=== PATIENT | male | born 1980 | race Caucasian/White ===

== ENCOUNTER 2021-10-26 14:00 | Emergency (ER) | payer OTHER, SELFPAY ==
[2021-10-26 14:15] VITALS: BP 146/92; PULSE 74; RESP 18; TEMP 36.9; O2SAT 97; BMI 27.0
--- NOTE | 2021-10-26 15:03 | ED_ITS ---
HPI - Wound/Laceration General Time Seen by Provider: 15:03 Date Seen: 10/26/21 Chief Complaint: Laceration/Wound Stated Complaint: Left pointer finger cut in power saw Time Seen by Provider: 10/26/21 14:53 Source: patient and family Mode of arrival: ambulatory Limitations: no limitations History of Present Illness HPI narrative: Dario is a very pleasant 41-year-old male with up-to-date immunization within the last 5 years tetanus who comes to the emergency room for evaluation regarding an injury to his left index finger. He states he was working with salt and the fall was not quite stopped when he reached in. This caused a laceration to the volar surface of his distal finger. He notes a lot of blood at initially. He states there is no pain at this time. Onset (ago): minute(s) Related Data Home Medications Medication Instructions Recorded Confirmed No Known Home Medications 10/26/21 10/26/21 Allergies Allergy/AdvReac Type Severity Reaction Status Date / Time No Known Drug Allergies Allergy Verified 10/26/21 14:15 Review of Systems Narrative: Patient is left handed. No pain at this time. No problems with poorly healing wounds in the past. [facility] Social History Smoking Status: Never smoker Do you use any of these nicotine containing products: None How often do you have a drink containing alcohol: 2-3 times a week How many standard drinks containing alcohol do you have on a typical day: 3 or 4 How often do you have six or more drinks on one occasion: Weekly AUDIT-C Alcohol total score: 7 Non-prescribed substance use: denies use and marijuana (any form) service: No Exam Narrative: Exam Narrative: Patient is alert and oriented. Examination of his left index finger shows a 1.8 cm area linear skin avulsion extending from just proximal to the D IP flexor to the lateral distal phalanx. This has avulsed the epidermis but dermis is intact. Patient has full flexion at the PIP and the IP. Sensation is intact. Const: Vital Signs, click to edit/add: Vital Signs - 24 hr 10/26/21 14:15 Temperature 98.4 F Pulse Rate [Pulse Oximeter] 74 Respiratory Rate 18 Blood Pressure [Ri ght Upper Arm] 146/92 H Pulse Oximetry 97 Course Vital Signs Vital signs: Initial Vital Signs Temperature 98.4 F 10/26/21 14:15 Temperature Source Temporal Artery Scan 10/26/21 14:15 Pulse Rate 74 10/26/21 14:15 Pulse Rhythm 10/26/21 14:15 Respiratory Rate 18 10/26/21 14:15 Blood Pressure 146/92 H 10/26/21 14:15 Blood Pressure Mean 110 10/26/21 14:15 Pulse Oximetry 97 10/26/21 14:15 Oxygen Delivery Method 10/26/21 14:15 Vital Signs Temperature 98.4 F 10/26/21 14:15 Pulse Rate 74 10/26/21 14:15 Respiratory Rate 18 10/26/21 14:15 Blood Pressure 146/92 H 10/26/21 14:15 Pulse Oximetry 97 10/26/21 14:15 Temperature 98.4 F 10/26/21 14:15 Pulse Rate 74 10/26/21 14:15 Respiratory Rate 18 10/26/21 14:15 Blood Pressure 146/92 H 10/26/21 14:15 Pulse Oximetry 97 10/26/21 14:15 MDM - Wound/Laceration MDM Narrative Medical decision making narrative: 1. Skin avulsion-unfortunately there is no way to bring the skin edges together but I will have patient use bacitracin for the next 2 days along with a Band- Aid. After that he may use just the Band-Aid and try to keep this open to air as it heals. There is a small amount of avulsed skin that he may allow to fall off naturally. Of course should he have worsening symptoms such as signs of i nfection I would ask him to return to the emergency room for evaluation. 2. Disposition-home with his . Currently having him wash his hands with soap and water. Will then dressed the wound. Discharge Plan Discharge Clinical Impression: Avulsion of skin Patient Disposition: Home, Self-Care Condition: Improved Additional Instructions: Monitor for infection and seek medical attention for increasing redness drainage in as needed. For 2 days cover with bacitracin twice daily-thin layer and a Band-Aid. After that just a Band-Aid and leave open to air if you are in a clean environment. Return as needed Prescriptions: No Action No Known Home Medications 0RF Stand Alone Forms: [employer] Info Instructions
== END 2021-10-26 15:10 | disposition home or self-care (01) ==
LOC: ED 15:10
PROVIDERS: Emergency Provider Family Medicine
DX: S61.311A Laceration without foreign body of left index finger with damage to nail, initial encounter (principal); W29.3XXA Contact with powered garden and outdoor hand tools and machinery, initial encounter
CPT/HCPCS: 99282; 99283

== ENCOUNTER 2022-01-14 08:09 | Outpatient (CLI) | payer OTHER, SELFPAY ==
[2022-01-14 13:25] LABS: Uric Acid* 7.4 mg/dL (2.2-8.4)
== END 2022-01-14 08:10 | disposition home or self-care (01) ==
LOC: FRMREF 08:10
PROVIDERS: Visit Provider Physician Assistant Medical
DX: M10.9 Gout, unspecified (principal); Z00.00 Encounter for general adult medical examination without abnormal findings
CPT/HCPCS: 84550

== ENCOUNTER 2023-08-04 11:17 | Outpatient (CLI) | payer MEDICAID, SELFPAY | END 2023-08-04 11:18 | disposition home or self-care (01) | PROVIDERS: PCP Physician Assistant Medical; Visit Provider Physician Assistant Medical | DX: Z13.220 Encounter for screening for lipoid disorders (principal); Z13.29 Encounter for screening for other suspected endocrine disorder; M10.9 Gout, unspecified; Z13.228 Encounter for screening for other metabolic disorders | CPT/HCPCS: 80053; 80061; 84443; 84550 ==

== ENCOUNTER 2024-11-13 07:44 | Outpatient (CLI) | payer MEDICAID, SELFPAY ==
--- NOTE | 2024-11-13 08:51 | P.ANES_ITS ---
Anesthesia Charges Start Date/Time Anesthesia Start Date: 11/13/24 Anesthesia Start Time: 08:30 Stop Date/Time Anesthesia Stop Date: 11/13/24 Anesthesia Stop Time: 08:49 Coding CPT Codes CPT Codes: ANES LWR INTST SCR COLSC - 75884 ([id number]) P2 - PATIENT W/MILD SYST DISEASE, QK - HOUSEKEEPER MANAGER 2-4 CNCRNT ANES PROC, QX - BAND BIAS MACHINE OPERATOR SVC W/ MD MED DIRECTION
--- NOTE | 2024-11-13 08:51 | W.ANESCHARGE ---
Anesthesia Charges Start Date/Time Anesthesia Start Date: 11/13/24 Anesthesia Start Time: 08:30 Stop Date/Time Anesthesia Stop Date: 11/13/24 Anesthesia Stop Time: 08:49 Coding CPT Codes CPT Codes: ANES LWR INTST SCR COLSC - 74448 ([id number]) P2 - PATIENT W/MILD SYST DISEASE, QK - SHIPPING TECHNICIAN 2-4 CNCRNT ANES PROC, QX - HAND MARKER SVC W/ MD MED DIRECTION
--- NOTE | 2024-11-13 09:05 | P.ANES_ITS ---
Anesthesia Charges Start Date/Time Anesthesia Start Date: 11/13/24 Anesthesia Start Time: 08:30 Stop Date/Time Anesthesia Stop Date: 11/13/24 Anesthesia Stop Time: 08:49 Coding CPT Codes CPT Codes: ANES LWR INTST SCR COLSC - 54579 ([id number]) P2 - PATIENT W/MILD SYST DISEASE, QK - MEDICAL BILLING CODER 2-4 CNCRNT ANES PROC, QX - SMALL PRODUCTS II ASSEMBLER SVC W/ MD MED DIRECTION
--- NOTE | 2024-11-13 09:05 | W.ANESCHARGE ---
Anesthesia Charges Start Date/Time Anesthesia Start Date: 11/13/24 Anesthesia Start Time: 08:30 Stop Date/Time Anesthesia Stop Date: 11/13/24 Anesthesia Stop Time: 08:49 Coding CPT Codes CPT Codes: ANES LWR INTST SCR COLSC - 39605 ([id number]) P2 - PATIENT W/MILD SYST DISEASE, QK - SHIP ERECTOR 2-4 CNCRNT ANES PROC, QX - AUTOMOBILE TECHNICIAN SVC W/ MD MED DIRECTION
== END 2024-11-13 07:45 | disposition home or self-care (01) ==
LOC: OP CLINIC 07:45
PROVIDERS: PCP Physician Assistant Medical; Visit Provider Internal Medicine
DX: Z12.11 Encounter for screening for malignant neoplasm of colon (principal); K57.30 Diverticulosis of large intestine without perforation or abscess without bleeding
CPT/HCPCS: 00812; 45378; J2704

== ENCOUNTER 2024-12-05 12:31 | Emergency (ER) | payer MEDICAID, SELFPAY ==
--- OUTSIDE RECORDS SUMMARY | 2024-12-05 12:33 | XMS_ITS | Clinical Summary ---
Author Organization [facility] Address [address] [place] [id number] Care Team Providers Care Epic Willow Specialist Name Role Phone Da Schrader MD Primary Care Provider [phone] Allergies No known active allergies Medications medication order composer Vitamin B supplement 0 3 Active medication order composer Vitamin D supplement 0 3 Active colchicine 0.6 mg tabletIndication s:Gout, unspecified cause, unspecified chronicity, unspecified site Take 2 Tablets (1.2 mg) by mouth once daily. Take two tablets now. Wait one hour and take one tablet. 3 Tablet 1 Active colchicine 0.6 mg tabletIndication s:Gout of big toe As directed 1 Tablet (0.6 mg) once daily. Take 1.2 mg tablet now. If still painful in 1 hr, take another tablet (0.6 mg). Total 3 tablets in first day. Next day if still painful, take last tablet. 4 Tablet 2 Active Active Problems Problem Noted Date Diagnosed Date Myopia of both eyes with astigmatism 12/14/2018 Elevated fasting glucose 05/31/2012 Overview (05/31/2012): May 2012: fasting 106, recheck in 1 year. Elevated BP 06/25/2010 Chest pain, unspecified 06/25/2010 Tobacco use disorder 06/25/2010 Immunizations Immunization Administration Dates Next Due Tdap 11/26/2015 Family History Medical History Relation Name Comments Stroke Maternal Grandmother Cancer Maternal Uncle lymphoma Hypertension Mother Stroke Mother Relation Name Status Comments Maternal Grandmother Maternal Uncle Mother Social History Tobacco Use Types Packs/Day Years Used Date Smoking Tobacco: Former Cigarettes 0.5 12 Smokeless Tobacco: Never Tobacco Cessation:Ready to Q uit: No; Counseling Given: Yes Alcohol Use Standard Drinks/Week Comments Yes 0 (1 standard drink = 0.6 oz pur e alcohol) occassional Social Connections Answer Date Recorded Frequency of Communication with Friends and Fami ly Not on file 08/19/2021 Sex and Gender Information Value Date Recorded Sex Assigned at Not on file Legal Sex Male 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 Gender Identity Not on file Sexual Orientation Not on file Obstetrics History Last Filed Vital Signs Vital Sign Reading Time Taken Comments Blood Pressure 130/88 08/19/2021 10:19 AM CDT Pulse 59 08/19/2021 10:19 AM CDT Temperature 36.8 C (98.2 F) 08/19/2021 10:19 AM CDT Respiratory Rate 15 12/19/2020 6:00 PM CDT Oxygen Saturation 98% 12/19/2020 6:00 PM CDT Inhaled Oxygen Concentration - - Weight 88 kg (194 lb) 02/02/2016 2:09 PM CDT Height 182.9 cm (6' 0.01) 02/02/2016 2:09 PM CD T Body Mass Index 26.31 02/02/2016 2:09 PM CDT Plan of Treatment Health Maintenance Due Date Last Done Comments HIV for age 15-65 1994 Hepatitis C screening for ag e 18-79 1997 Hepatitis B series for 19+ ( 1 of 3 - 19+ 3-dose series) 1998 Depression screening for age 12+ 08/12/2016 08/13/2015 BMI (ht and wt on same day) for age 18+ 02/01/2017 02/02/2016, 08/13/2015 COVID-19 vaccine series (2023- season) 2023 07/16/2020, 06/18/2020 Colonoscopy through age 75 2024 Lipids for age 45-75 2024 05/30/2012 Influenza Vaccine (#1) 2024 Tetanus booster 11/25/2025 11/26/2015 Pneumococcal series for age 6-49 Aged Out No longer eligible b ased on patient's age to complete this topic Procedures Procedure Name Priority Date/Time Associated Diagnosis Comments LIPID PANEL W REFLEX MEASURED LDL Routine 05/30/2012 11:04 AM LAUNDRY MACHINE MECHANIC Screening for diabetes mellitus from Last 3 Months or Most Recently Relevant to Health Maintenance Results * LIPID PANEL W REFLEX MEASURED LDL (05/30/2012 11:04 AM LAUNDRY MACHINE MECHANIC) CHOLESTEROL,TOTA L 125 100 - 199 mg/dL [facility] TRIGLYCERIDES 49 <150 mg/dL [facility] HDL CHOLESTEROL 52 >40 mg/dL [facility] CHOL/HDL RATIO 2.40 <4.50 [facility] NON-HDL CHOLESTEROL 73 Undefined mg/dL [facility] LDL CHOLESTEROL 63 <131 mg/dL [facility] PATIENT STATUS Fasting [facility] Blood specimen (specimen) BLOOD SPECIMEN / Unknown 05/30/2012 11:04 AM LAUNDRY MACHINE MECHANIC 05/30/2012 11:00 AM LAUNDRY MACHINE MECHANIC us Da Schrader MD CHEMISTRY Final Res ult [facility] [id number] [place] [id number] from Last 3 Months or Most Recently Relevant to Health Maintenance Insurance [facility] [place] [id number] Care Teams Epic Willow Specialist Relationship Specialty Start Date End Date Da Schrader MD PCP - General Family Practice 04/10/12
--- OUTSIDE RECORDS SUMMARY | 2024-12-05 12:33 | XMS_ITS | Clinical Summary ---
Author Organization [facility] Address [address] [place] [id number] Care Team Providers Care Burlap Worker Name Role Phone No Ref-Primary, Physician Primary Care Provider Allergies No known active allergies Medications allopurinol (ZYLOPRIM) 100 MG tablet Take 1 tablet by mouth daily at 2 pm 03/24/2023 Active Social History Tobacco Use Types Packs/Day Years Used Date Smoking Tobacco: Former Cigarettes Smokeless Tobacco: Never Tobacco Cessation:Counseling Given: Not Answered Adolescent Education Answer Date Record ed Getting School Help Needed Not on file 06/15 Sex and Gender Information Value Date Recorded Sex Assigned at Not on file Legal Sex Male 3:30 AM DIGITAL SPECIALIST Gender Identity Not on file Sexual Orientation Not on file Last Filed Vital Signs Vital Sign Reading Time Taken Comments Blood Pressure 144/96 06/16/2023 6:27 PM DIGITAL SPECIALIST Pulse 81 06/16/2023 6:27 PM DIGITAL SPECIALIST Temperature 37.2 C (98.9 F) 06/16/2023 6:27 PM DIGITAL SPECIALIST Respiratory Rate 16 06/16/2023 6:27 PM DIGITAL SPECIALIST Oxygen Saturation 98% 06/16/2023 6:27 PM DIGITAL SPECIALIST Inhaled Oxygen Concentration - - Weight - - Height - - Body Mass Index - - Plan of Treatment Health Maintenance Due Date Last Done Comments ADVANCE CARE PLANNING 1979 ANNUAL REVIEW OF HM ORDERS 1979 CT COLONOGRAPHY 1979 DIABETES SCREENING 1979 FIT 1979 FLEX SIG 1979 URIC ACID 1979 sDNA (Cologuard) 1979 YEARLY PREVENTIVE VISIT 1982 COLONOSCOPY 1989 COLORECTAL CANCER SCREENING 1989 HIV SCREENING 1994 HEPATITIS C SCREENING 1997 HEPATITIS B VACCINE (1 of 3 - 19+ 3-dose series) 1998 LIPID 2019 COVID-19 VACCINE (3 - 2023-2 5 season) 2023 07/16/2020, 06/18/2020 PHQ-2 (once per calendar year) 2024 INFLUENZA VACCINE (#1) 2024 , 01/11/2019, 02/16/2018 DTAP/TDAP/TD VACCINE (3 - Td or Tdap) 11/25/2025 11/26/2015, 09/10/1996 ZOSTER VACCINE (1 of 2) 2029 HPV VACCINE (No Doses Required) Completed MENINGITIS VACCINE Aged Out No longer eligible based on patient's age to complete this topic PNEUMOCOCCAL VACCINE: PEDIATRICS (0 to 5 YEARS) AND AT-RISK PATIENTS (6 to 49 YEARS) Aged Out No longer eligible b ased on patient's age to complete this topic [facility] [employer] Care Teams Burlap Worker Relationship Specialty Start Date End Date No Ref-Primary, Physician PCP - General 06/16/23
[2024-12-05 12:40] VITALS: BP 151/97; PULSE 52; RESP 16; TEMP 35.9; O2SAT 97; BMI 25.2
--- NOTE | 2024-12-05 12:56 | ED_ITS ---
HPI - General Adult General Chief complaint: Chest Pain Stated complaint: chest pain Time Seen by Provider: 12/05/24 12:56 History of Present Illness HPI narrative: Pt was eating some almonds the Tuesday evening and felt as if maybe they didn 't go down right. Had some pain in his chest at that time with this. Had some discomfort yesterday. Today feeling has mostly resolved but pt told about it and made him come in. Pt also states he has had hx of stress related chest tightness . Pt states his mother recently and this is a stressor. 44-year-old man presenting to the emergency department with complaint of central to middle lower chest pain. Couple evenings ago was eating [employer] and subsequently was feeling some shocks of pain. Continued with some discomfort over the next day. Not pleuritic. No radiation really. No sore throat. No lightheadedness. Has continued to feel a little tight in his chest. Acknowledges that is dealing with a good deal of stress. He is self admittedly a high strung ana. Mom has recently and they are planning . Evaluated for chest discomfort sometime back and thought to be just related to anxiety he says. Related Data Previous Rx's ?Medication ?Instructions ?Recorded allopurinol 100 mg tablet 100 mg PO QDAY #90 tabs 10/09 10/03 fluoxetine 20 mg capsule 20 mg PO QDAY #60 caps 10/24 Allergies Allergy/AdvReac Type Severity Reaction Status Date / Time No Known Drug Allergies Allergy Verified 10/24/24 10:06 Review of Systems Status of ROS: Reports: 6 or more systems reviewed and unremarkable except as noted in History and below PFSH PFSH Family History (Updated 10/24/24 @ 10:36 by Chi Moreno PA-C) Father Drug dependence Mother High blood pressure High cholesterol Stroke Grandfather No problems noted. Social History (Updated 10/23/24 @ 10:22 by Humaira Meek LPN, BUSINESS SYSTEM CONSULTANT) What is your current living situation?: I presently have a place to live Problems where you live: no known problems In the past 12 months, utilities in danger of being shut off: no In past 12 months, lack of transportation kept you from medical appts, meetings, work, or getting things needed for daily living: no In the past 12 mos, have been you worried that your food would run out before you had money to buy more?: never true In the past 12 mos, the food you bought just didn't last and you didn't have money to buy more?: never true Smoking Status: Current some day smoker What tobacco products do you use: cigarettes Do you use any of these nicotine containing products: None How often do you have a drink containing alcohol: 4 or more times a week How many standard drinks containing alcohol do you have on a typical day: 3 or 4 How often do you have six or more drinks on one occasion: Weekly AUDIT-C Alcohol total score: 8 Non-prescribed substance use: marijuana (any form) How often does anyone, including family, friends and others, physically hurt you : never How often does anyone, including family, friends and others, insult or talk down to you: rarely How often does anyone, including family, friends and others, threaten you with harm: never How often does anyone, including family, friends and others, scream or curse at you: rarely service: No Health Related Social Needs: Other personal risk factors, not elsewhere classified (Z91.89) Exam Narrative: Exam Narrative: Pleasant. NAD. Good energy. Breathing easily. Lungs are clear. No supraclavicular crepitus. No reproduction to palpation over the chest wall. Abdomen is soft nontender. Heart in slower but regular rate. No MRG. oropharynx is unremarkable other than a little tonsillar debris on the left. No significant erythema or swelling. No stridor. Const: Vital Signs, click to edit/add: Vital Signs - 24 hr 12/05/24 12:40 Temperature 96.6 F L Pulse Rate [Pulse Oximeter] 52 L Respiratory Rate 16 Blood Pressure [Ri ght Upper Arm] 151/97 H Pulse Oximetry 97 Oxygen Delivery Me thod Room Air Documenting provider has reviewed patient's vital signs: yes Course Vital Signs Vital signs: Initial Vital Signs Temperature 96.6 F L 12/05/24 12:40 Temperature Source Temporal Artery Scan 12/05/24 12:40 Pulse Rate 52 L 12/05/24 12:40 Respiratory Rate 16 12/05/24 12:40 Blood Pressure 151/97 H 12/05/24 12:40 Blood Pressure Mean 115 H 12/05/24 12:40 Blood Pressure Position Sitting 12/05/24 12:40 Pulse Oximetry 97 12/05/24 12:40 Oxygen Delivery Method Room Air 12/05/24 12:40 Vital Signs Temperature 96.6 F L 12/05/24 12:40 Pulse Rate 52 L 12/05/24 12:40 Respiratory Rate 16 12/05/24 12:40 Blood Pressure 151/97 H 12/05/24 12:40 Pulse Oximetry 97 12/05/24 12:40 Oxygen Delivery Method Room Air 12/05/24 12:40 Temperature 96.6 F L 12/05/24 12:40 Pulse Rate 52 L 12/05/24 12:40 Respiratory Rate 16 12/05/24 12:40 Blood Pressure 151/97 H 12/05/24 12:40 Pulse Oximetry 97 12/05/24 12:40 Oxygen Delivery Method Room Air 12/05/24 12:40 Medical Decision Making MDM Narrative Medical decision making narrative: He has not had any trouble swallowing anything since. Would have thought some degree of globus but symptoms have not continued really other than them general chest tightness. Certainly might be related to some degree of anxiety. Will check labs looking for evidence of ischemic event of the heart. Chest x-ray looking for pneumothorax or pneumomediastinum. Monitor on surveillance monitor oximetry during time in the emergency department. Standard labs. Chest x-ray independently reviewed by me one-view -- I do not appreciate any pneumothorax or pneumomediastinum. Normal cardiac silhouette. Radiology over-read below INDICATION: Chest pain COMPARISON: None. TECHNIQUE: One view AP chest FINDINGS: Lung volumes are good. No focal or diffuse opacities. No pulmonary edema. No pleural effusion. No pneumothorax. No pneumomediastinum. Normal cardiomediastinal silhouette. Bones: No acute appearing findings. Mild widening and irregularity at the right acromioclavicular joint is probably related to remote trauma. IMPRESSION: Lungs clear. No acute findings. Dictated by Peggy Schafer MD @ 12/05/2024 1:25:49 PM No further events during time in the emergency department. No worsening of d iscomfort. Labs are reassuring/normal. See patient discharge plan for further discussion Thankfully your evaluation is reassuring. I have not seen any evidence of cardiac injury or other indication of a problem. You might follow-up this next week in primary care to discuss this visit further. Return for marked increase in chest pain particular accompanied by shortness of breath or nausea or diaphoresis or persistently rapid heart rate. I am sorry for your loss of your mother. Wishing you a shyla remembrance. Medical Records Medical records reviewed: Yes I reviewed the patient's medical records Lab Data Lab results reviewed: Yes I reviewed the patient's lab results Labs: Lab Results 12/05/24 Range/Units 13:25 WBC 6.52 (4.50-11.00) K/uL RBC 4.94 (4.30-5.90) m/uL Hgb 15.7 (13.5-17.5) gm/dL Hct 45.6 (37.0-53.0) % MCV 92 (80-100) fL MCH 32 (26-34) pg MCHC 34 (32-36) gm/dL RDW Coeff of Kim 11.7 (11.5-15.5) % Plt Count 204 (140-440) K/uL Neut % (Auto) 52.5 (42.0-72.0) % Lymph % (Auto) 35.0 (20-44) % [place] % (Auto) 8.4 (0.0-11.0) % Eos % (Auto) 3.8 (0.0-7.0) % Baso % (Auto) 0.3 (0.0-3.0) % Neut # (Auto) 3.42 (1.7-7.0) K/uL Lymph # (Auto) 2.28 (0.90-2.90) K/uL [place] # (Auto) 0.50 (0.00-0.90) K/UL Eos # (Auto) 0.25 (0.00-0.50) K/uL Baso # (Auto) 0.02 (0.00-0.30) K/uL Abs Immat Gran (auto) 0.00 (0.00-0.30) K/uL Imm/Tot Granulo (auto) 0.0 % D-Dimer Quant (PE/DVT) 0.39 (0.00-0.50) ug/ml Sodium 139 (135-149) mmol/L Potassium 4.1 (3.6-5.1) mmol/L Chloride 105 (96-114) mmol/L Carbon Dioxide 26 (20-32) mmol/L Anion Gap 8 (7-15) mEq/L BUN 22 (5-24) mg/dL Creatinine 0.8 (0.5-1.5) mg/dL Estimated Creat Clear 139.37 Estimated GFR 111 ml/min Glucose 100 (60-115) mg/dL Calcium 9.7 (8.4-10.6) mg/dL Total Bilirubin 1.1 (0.1-1.5) mg/dL Direct Bilirubin 0.1 (0.0-0.5) mg/dL AST 45 H (12-35) U/L ALT 50 (4-50) U/L Alkaline Phosphatase 54 (40-150) U/L Troponin I < 0.01 (0.01-0.04) ng/mL NT-Pro-B Natriuret Pep 69 (See Note) pg/mL Total Protein 8.3 (6.0-8.3) g/dL Albumin 4.7 (3.3-5.0) g/dL ECG Data Attestation: I personally reviewed and interpreted this ECG as follows: (Sinus bradycardia at rate of 52. Without evidence of ischemia) Discharge Plan Discharge Clinical Impression: Atypical chest pain, Other social stressor Patient Disposition: Home, Self-Care Condition: Stable Additional Instructions: Thankfully your evaluation is reassuring. I have not seen any evidence of cardiac injury or other indication of a problem. You might follow-up this next week in primary care to discuss this visit further. Return for marked increase in chest pain particular accompanied by shortness of breath or nausea or diaphoresis or persistently rapid heart rate. I am sorry for your loss of your mother. Wishing you a shyla remembrance. Prescriptions: No Action fluoxetine 20 mg capsule 20 mg PO QDAY Qty: 60 0RF allopurinol 100 mg tablet 100 mg PO QDAY Qty: 90 3RF Follow Up/Referrals: Chi Moreno PA-C [Primary Care Provider, Family Practice] Stand Alone Forms: [employer] Info Instructions
--- NOTE | 2024-12-05 13:05 | CRLHL7_ITS ---
For Patients: As a result of the Century Cures Act, medical imaging exams and procedure reports are released immediately into your electronic medical record. You may view this report before your referring provider. If you have questions, please contact your health care provider. INDICATION: Chest pain COMPARISON: None. TECHNIQUE: One view AP chest FINDINGS: Lung volumes are good. No focal or diffuse opacities. No pulmonary edema. No pleural effusion. No pneumothorax. No pneumomediastinum. Normal cardiomediastinal silhouette. Bones: No acute appearing findings. Mild widening and irregularity at the right acromioclavicular joint is probably related to remote trauma. IMPRESSION: Lungs clear. No acute findings. Dictated by Peggy Schafer MD @ 12/05/2024 1:25:49 PM (Electronically Signed)
[2024-12-05 13:45] LABS: Hematocrit 45.6 % (37.0-53.0); Hemoglobin* 15.7 gm/dL (13.5-17.5); Immature Granulocytes Abs Auto 0.00 K/uL (0.00-0.30); Immature Granulocytes Pct Auto 0.0 %; Lymphocytes Absolute Auto 2.28 K/uL (0.90-2.90); Mean Corpuscular HGB Conc 34 gm/dL (32-36); Mean Corpuscular Hemoglobin 32 pg (26-34); Mean Corpuscular Volume 92 fL (80-100); RDW Coefficient of Variation % 11.7 % (11.5-15.5); Red Blood Count 4.94 m/uL (4.30-5.90); White Blood Count* 6.52 K/uL (4.50-11.00)
[2024-12-05 13:54] LABS: Albumin* 4.7 g/dL (3.3-5.0); Chloride* 105 mmol/L (96-114); Potassium* 4.1 mmol/L (3.6-5.1); Sodium* 139 mmol/L (135-149)
[2024-12-05 13:56] LABS: Alanine Aminotransferase* 50 U/L (4-50); Anion Gap 8 mEq/L (7-15); Aspartate Amino Transferase* 45 U/L (12-35); Blood Urea Nitrogen* 22 mg/dL (5-24); Carbon Dioxide* 26 mmol/L (20-32); Creatinine* 0.8 mg/dL (0.5-1.5); Est. Creatinine Clearance* 139.37; Estimated Glomerular Filt Rate 111 ml/min
[2024-12-05 13:57] LABS: Alkaline Phosphatase* 54 U/L (40-150); Bilirubin Direct* 0.1 mg/dL (0.0-0.5); Bilirubin Total* 1.1 mg/dL (0.1-1.5); Calcium* 9.7 mg/dL (8.4-10.6); Glucose* 100 mg/dL (60-115); Total Protein* 8.3 g/dL (6.0-8.3)
[2024-12-05 14:08] LABS: Slide Review Reflex No
[2024-12-05 14:35] LABS: D Dimer Quantitative* 0.39 ug/ml (0.00-0.50)
[2024-12-05 14:36] LABS: NT Pro B Type NatriureticPept* 69 pg/mL (See Note)
== END 2024-12-05 15:15 | disposition home or self-care (01) ==
PROVIDERS: Emergency Provider Family Medicine; PCP Physician Assistant Medical
DX: R07.9 Chest pain, unspecified (principal); F43.9 Reaction to severe stress, unspecified
CPT/HCPCS: 36415; 71045; 80048; 80076; 83880; 84484; 85025; 85379; 93005; 99284